=== PATIENT | female | born 1985 | race Caucasian/White ===

== ENCOUNTER 2017-01-23 14:52 | Emergency (ER) | payer BC ==
--- NOTE | ~2017-01-23 | CR127 ---
[facility] A Service of [facility] & [facility] / [facility] RADIOLOGY TEXT RESULTS PATIENT: KUSHAL BOWER LOCATION: SED : 85 UNIT #: [id number] AGE: [address]: Tatiana Ulloa APRN SEX: F ORDER DR: [id number] [place] [id number] E MR#: [id number] Acc #: [id number] NAME: KUSHAL BOWER : 1985 SEX: F STUDY DATE/TIME: 01/23/2017 14:47 UNIT: SED ROOM: STUDY DESCRIPTION: CR Foot Complete Min 3 View Rt Attending Physician: Tatiana Ulloa A.P.R.N. Ordering Physician: Tatiana Ulloa A.P.R.N. Primary Care Physician: No Primary Care Physician MEDICAL IMAGING REPORT This report is preliminary unless electronic signature is present. EXAM right foot 01/23/2017 INDICATIONS 31-year-old female with history of pain in the lateral aspect of foot and ankle since last night after a twisting injury. Swelling. FINDINGS 3 views right foot. No comparisons. Small calcaneal spur present. No acute fracture. Mild soft tissue swelling about the fifth MTP joint. IMPRESSION Negative right foot. Mild soft tissue swelling about the fifth MTP joint. Dictated by... Stu Ramires M.D. THIS IS AN ELECTRONICALLY VERIFIED REPORT Stu Ramires M.D. at 01/23/2017 5:27 PM Zohra TD: 01/23/2017 16:40 JOB #: [id number] MEDICAL IMAGING REPORT Page 1 of 1
--- NOTE | ~2017-01-23 | CR21 ---
[facility] A Service of [facility] RADIOLOGY TEXT RESULTS PATIENT: KUSHAL BOWER LOCATION: SED : 85 UNIT #: [id number] AGE: [address]: Tatiana Ulloa APRN SEX: F ORDER DR: [id number] [place] [id number] E MR#: [id number] Acc #: [id number] NAME: KUSHAL BOWER : 1985 SEX: F STUDY DATE/TIME: 01/23/2017 14:47 UNIT: SED ROOM: STUDY DESCRIPTION: CR Ankle Min 3 Views Rt Attending Physician: Tatiana Ulloa A.P.R.N. Ordering Physician: Tatiana Ulloa A.P.R.N. Primary Care Physician: No Primary Care Physician MEDICAL IMAGING REPORT This report is preliminary unless electronic signature is present. EXAM Right ankle, 01/23/2017. INDICATION 31-year-old female with a history of pain in the lateral aspect of the foot and ankle since last night after a twisting injury. Pain and swelling. TECHNIQUE 3 views of the right ankle. COMPARISON STUDIES No comparisons. FINDINGS Small calcaneal spur present. No acute fracture. Joint spaces preserved. No soft tissue swelling. IMPRESSION Negative. Dictated by... Stu Ramires M.D. THIS IS AN ELECTRONICALLY VERIFIED REPORT Stu Ramires M.D. at 01/23/2017 5:27 PM LUISA/[email or web address] TD: 01/23/2017 16:38 JOB #: [id number] [facility] A Service of [facility] RADIOLOGY TEXT RESULTS PATIENT: KUSHAL BOWER LOCATION: SED : 85 UNIT #: [id number] AGE: [address]: Tatiana Ulloa APRN SEX: F ORDER DR: MEDICAL IMAGING REPORT Page 1 of 1
[~2017-01-23 14:52] MED LIST: ALBUTEROL17 GM INH; BCP; CLARITIN10 MG PO; DICLOFENAC PO; FLEXERIL10 MG PO; GLUCOPHAGE XR500 MG PO; GUAIFENESIN400 M1 PO; KLONOPIN PO; KLONOPIN1 MG PO; LEVOXYL100 MCG PO; METFORMIN HCL500 M1 PO; METFORMIN PO; NORCO 10/325 TA1 TAB PO; PERCOCET 5-3251 TAB PO; PERCOCET5/325 PO; PREDNISONE PO; SKELAXIN PO; SYNTHROID PO; TESSALON PERLE100 M1 PO; VOLTAREN75 MG PO; ZITHROMAX PO
== END 2017-01-23 16:16 | disposition home or self-care (01) ==
LOC: SED 14:52
DX: S93.491A Sprain of other ligament of right ankle, initial encounter (principal); S93.421A Sprain of deltoid ligament of right ankle, initial encounter; Z88.8 Allergy status to other drugs, medicaments and biological substances; W18.42XA Slipping, tripping and stumbling without falling due to stepping into hole or opening, initial encounter; Y92.009 Unspecified place in unspecified non-institutional (private) residence as the place of occurrence of the external cause
CPT/HCPCS: 29405; 73610; 73630; 99283